=== PATIENT | male | born 1985 | race Caucasian/White ===

== ENCOUNTER 2022-12-26 10:32 | Day surgery (SDC) | payer BC ==
[2022-12-26] MEDS ORDERED: LIDOCAINE HCL 1% 50 MG/5 ML VL PF IJ ONE (10:33)
[2022-12-26] MEDS ORDERED: Sodium Chloride 0.9(Preservative Free) 10 ML IJ ONE (10:33)
[2022-12-26] MEDS ORDERED: Depo-Medrol 40 MG/ML IM ONE (10:33)
[2022-12-26] MEDS ORDERED: DIPRIVAN 200 MG/20 ML IV ONE ×2 (12:42→12:49)
[2022-12-26] MEDS ORDERED: Lactated Ringers 1,000 ML IV ONE (13:19)
--- NOTE | 2022-12-26 13:55 | XRAY ---
Indication: Lumbar RENE. Intraoperative fluoroscopy provided for 41 seconds. 33 digital spot image submitted for interpretation demonstrates posterior needle tip projecting posterior to L3-L4 interspace. Small amount of contrast injected for needle tip placement. Correlate with intraoperative findings/report.
--- NOTE | 2022-12-26 14:42 | XRAY ---
41 seconds of fluoroscopy was used in surgery for a lumbar RENE.
== END 2022-12-26 13:20 | disposition home or self-care (01) ==
LOC: SDC-PAIN 10:32
PROVIDERS: ATTEND Psychiatry & Neurology Pain Medicine
DX: M54.16 Radiculopathy, lumbar region (principal); Z79.899 Other long term (current) drug therapy
CPT/HCPCS: 62323; 72100; 77003; J1030; J2001; J2704; Q9966

== ENCOUNTER 2023-01-23 08:10 | Day surgery (SDC) | payer BC ==
[2023-01-23] MEDS ORDERED: Depo-Medrol 40 MG/ML IM ONE (08:11)
[2023-01-23] MEDS ORDERED: Sodium Chloride 0.9(Preservative Free) 10 ML IJ ONE (08:11)
[2023-01-23] MEDS ORDERED: DIPRIVAN 200 MG/20 ML IV ONE ×2 (09:06→09:14)
--- NOTE | 2023-01-23 12:28 | XRAY ---
Indication: Right L2-L5 transforaminal RENE. Intraoperative fluoroscopy provided for 56 seconds. 6 digital spot images submitted for interpretation demonstrates posterior needle tip projecting over the right L2-L4 nerve roots. Small amount of contrast injected for needle tip placement. Correlate with intraoperative findings/report.
--- NOTE | 2023-01-23 12:41 | XRAY ---
56 seconds of fluoroscopy was used in surgery for a right L2-L5 transforaminal RENE.
[2023-01-23] MEDS ORDERED: Lactated Ringers 1,000 ML IV ONE (13:51)
== END 2023-01-23 09:45 | disposition home or self-care (01) ==
LOC: SDC-PAIN 08:10
PROVIDERS: ATTEND Psychiatry & Neurology Pain Medicine
DX: M54.16 Radiculopathy, lumbar region (principal); Z79.899 Other long term (current) drug therapy
CPT/HCPCS: 64483; 64484; 72100; 77003; J1030; J2704; Q9966

== ENCOUNTER 2023-03-06 13:43 | Day surgery (SDC) | payer BC ==
[2023-03-06] MEDS ORDERED: Depo-Medrol 40 MG/ML IM ONE (13:44)
[2023-03-06] MEDS ORDERED: LIDOCAINE HCL 2% 100 MG/5 ML IJ ONE (13:44)
[2023-03-06] MEDS ORDERED: DIPRIVAN 200 MG/20 ML IV ONE ×2 (14:30→14:38)
[2023-03-06] MEDS ORDERED: Lactated Ringers 1,000 ML IV ONE (15:08)
--- NOTE | 2023-03-06 19:08 | XRAY ---
Indication: Bilateral L4-S1 MBB. Intraoperative fluoroscopy provided for 11 seconds. Single digital spot image submitted for interpretation demonstrates posterior needle tips projecting over the expected left and right L4-S1 nerve roots. Correlate with intraoperative findings/report.
--- NOTE | 2023-03-06 19:27 | XRAY ---
11 seconds of fluoroscopy was used in surgery for a bilateral L4-S1 MBB.
== END 2023-03-06 14:57 | disposition home or self-care (01) ==
LOC: SDC-PAIN 13:43
PROVIDERS: ATTEND Psychiatry & Neurology Pain Medicine
DX: M47.816 Spondylosis without myelopathy or radiculopathy, lumbar region (principal); Z79.899 Other long term (current) drug therapy
CPT/HCPCS: 64493; 64494; 72020; 77002; J1030; J2704

== ENCOUNTER 2023-05-23 11:34 | Day surgery (SDC) | payer BC ==
[2023-05-23] MEDS ORDERED: Depo-Medrol 40 MG/ML IM ONE (11:35)
[2023-05-23] MEDS ORDERED: BUPIVACAINE 0.5% VIAL IJ ONE (11:35)
[2023-05-23] MEDS ORDERED: Versed 2 MG/2 ML Injection ONE (12:32)
[2023-05-23] MEDS ORDERED: DIPRIVAN 200 MG/20 ML IV ONE (12:32)
[2023-05-23] MEDS ORDERED: Lactated Ringers 1,000 ML IV ONE (12:58)
--- NOTE | 2023-05-23 14:02 | XRAY ---
Indication: Bilateral L4-S1 MBB. Intraoperative fluoroscopy provided for 12 seconds. Single digital spot image submitted for interpretation demonstrates posterior needle tips projecting over the expected left and right L4-S1 nerve roots. Correlate with intraoperative findings/report.
--- NOTE | 2023-05-23 14:08 | XRAY ---
12 seconds of fluoroscopy was used in surgery for a bilateral L4-S1 MBB.
== END 2023-05-23 12:54 | disposition home or self-care (01) ==
LOC: SDC-PAIN 11:34
PROVIDERS: ATTEND Psychiatry & Neurology Pain Medicine
DX: M47.816 Spondylosis without myelopathy or radiculopathy, lumbar region (principal); Z79.899 Other long term (current) drug therapy
CPT/HCPCS: 64493; 64494; 72020; 77002; J1030; J2250; J2704

== ENCOUNTER 2023-07-03 13:12 | Day surgery (SDC) | payer BC ==
[2023-07-03] MEDS ORDERED: LIDOCAINE HCL 1% 50 MG/5 ML VL PF IJ ONE (13:13)
[2023-07-03] MEDS ORDERED: BUPIVACAINE 0.5% VIAL IJ ONE (13:13)
[2023-07-03] MEDS ORDERED: Depo-Medrol 40 MG/ML IM ONE (13:13)
[2023-07-03] MEDS ORDERED: DIPRIVAN 200 MG/20 ML IV ONE ×3 (15:26→15:39)
[2023-07-03] MEDS ORDERED: Versed 2 MG/2 ML Injection ONE (15:27)
[2023-07-03] MEDS ORDERED: Lactated Ringers 1,000 ML IV ONE (15:59)
--- NOTE | 2023-07-03 16:47 | XRAY ---
Indication: Left L4-S1 RFA. Intraoperative fluoroscopy provided for 28 seconds. 5 digital spot image submitted for interpretation demonstrates posterior needle tips projecting over the expected left L4-S1 nerve roots. Correlate with intraoperative findings/report.
--- NOTE | 2023-07-08 14:58 | XRAY ---
28 seconds of fluoroscopy was used in surgery for a left L4-S1 RFA.
== END 2023-07-03 16:01 | disposition home or self-care (01) ==
LOC: SDC-PAIN 13:12
PROVIDERS: ATTEND Psychiatry & Neurology Pain Medicine
DX: M47.816 Spondylosis without myelopathy or radiculopathy, lumbar region (principal); Z79.899 Other long term (current) drug therapy
CPT/HCPCS: 64635; 64636; 72100; 77002; J1030; J2001; J2250; J2704

== ENCOUNTER 2024-02-12 10:37 | Day surgery (SDC) | payer BC ==
[2024-02-12] MEDS ORDERED: Depo-Medrol 40 MG/ML IM ONE (10:38)
[2024-02-12] MEDS ORDERED: Xylocaine-Mpf 2% 5 Ml Vial IJ ONE (10:38)
[2024-02-12] MEDS ORDERED: DIPRIVAN 200 MG/20 ML IV ONE (12:04)
--- NOTE | 2024-02-12 13:03 | XRAY ---
Indication: Bilateral L3-L5 MBB. Intraoperative fluoroscopy provided for 9 seconds. Single digital spot image submitted for interpretation demonstrates posterior needle tips projecting over the expected left and right L3-L5 nerve roots. Correlate with intraoperative findings/report.
--- NOTE | 2024-02-12 13:06 | XRAY ---
9 seconds of fluoroscopy was used in surgery for a bilateral L3-L5 MBB.
[2024-02-12] MEDS ORDERED: Lactated Ringers 1,000 ML IV ONE (13:13)
== END 2024-02-12 12:30 | disposition home or self-care (01) ==
LOC: SDC-PAIN 10:37
PROVIDERS: ATTEND Psychiatry & Neurology Pain Medicine
DX: M47.816 Spondylosis without myelopathy or radiculopathy, lumbar region (principal)
CPT/HCPCS: 64493; 64494; 72020; 77002; J1010; J2704

== ENCOUNTER 2024-04-08 12:56 | Day surgery (SDC) | payer BC ==
[2024-04-08] MEDS ORDERED: DIPRIVAN 200 MG/20 ML IV ONE ×2 (15:30→15:47)
[2024-04-08] MEDS ORDERED: Lactated Ringers 1,000 ML IV ONE (15:32)
--- NOTE | 2024-04-08 16:57 | XRAY ---
Indication: Bilateral L3-L5 MBB. Intraoperative fluoroscopy provided for 21 seconds. Single digital spot image submitted for interpretation demonstrates posterior needle tips projecting over the expected left and right L3-L5 nerve roots. Correlate with intraoperative findings/report.
--- NOTE | 2024-04-09 09:10 | XRAY ---
21 seconds of fluoroscopy was used in surgery for a bilateral L3-L5 MBB.
== END 2024-04-08 16:10 | disposition home or self-care (01) ==
LOC: SDC-PAIN 12:56
PROVIDERS: ATTEND Psychiatry & Neurology Pain Medicine
DX: M47.816 Spondylosis without myelopathy or radiculopathy, lumbar region (principal)
CPT/HCPCS: 64493; 64494; 72020; 77002; J2704

== ENCOUNTER 2024-06-10 10:29 | Day surgery (SDC) | payer BC ==
[2024-06-10] MEDS ORDERED: Depo-Medrol 40 MG/ML IM ONE (10:30)
[2024-06-10] MEDS ORDERED: LIDOCAINE HCL 1% 50 MG/5 ML VL PF IJ ONE (10:30)
[2024-06-10] MEDS ORDERED: BUPIVACAINE 0.5% VIAL IJ ONE (10:30)
[2024-06-10] MEDS ORDERED: DIPRIVAN 200 MG/20 ML IV ONE ×2 (12:11→12:12)
[2024-06-10] MEDS ORDERED: Lactated Ringers 1,000 ML IV ONE (14:19)
--- NOTE | 2024-06-10 14:34 | XRAY ---
Indication: Right L3-L5 RFA. Intraoperative fluoroscopy provided for 18 seconds. 4 digital spot image submitted for interpretation demonstrates posterior needle tips projecting over the expected right L3-L5 nerve roots. Correlate with intraoperative findings/report.
--- NOTE | 2024-06-10 14:38 | XRAY ---
18 seconds of fluoroscopy was used in surgery for a right L3-L5 RFA.
== END 2024-06-10 12:45 ==
LOC: SDC-PAIN 10:29
PROVIDERS: ATTEND Psychiatry & Neurology Pain Medicine
DX: M47.816 Spondylosis without myelopathy or radiculopathy, lumbar region (principal); M47.817 Spondylosis without myelopathy or radiculopathy, lumbosacral region
CPT/HCPCS: 64635; 64636; 72100; 77002; J2001; J2704

== ENCOUNTER 2024-06-11 10:34 | Day surgery (SDC) | payer BC ==
[2024-06-11] MEDS ORDERED: BUPIVACAINE 0.5% VIAL IJ ONE (10:35)
[2024-06-11] MEDS ORDERED: LIDOCAINE HCL 1% 50 MG/5 ML VL PF IJ ONE (10:35)
[2024-06-11] MEDS ORDERED: Depo-Medrol 40 MG/ML IM ONE (10:35)
[2024-06-11] MEDS ORDERED: DIPRIVAN 200 MG/20 ML IV ONE (13:09)
[2024-06-11] MEDS ORDERED: Lactated Ringers 1,000 ML IV ONE (14:04)
--- NOTE | 2024-06-11 15:03 | XRAY ---
Indication: Left L3-L5 RFA. Intraoperative fluoroscopy provided for 22 seconds. 4 digital spot image submitted for interpretation demonstrates posterior needle tips projecting over the expected left L3-L5 nerve roots. Correlate with intraoperative findings/report.
--- NOTE | 2024-06-11 15:24 | XRAY ---
22 seconds of fluoroscopy was used in surgery for a left L3-L5 RFA.
== END 2024-06-11 13:44 | disposition home or self-care (01) ==
LOC: SDC-PAIN 10:34
PROVIDERS: ATTEND Psychiatry & Neurology Pain Medicine
DX: M47.816 Spondylosis without myelopathy or radiculopathy, lumbar region (principal); M47.817 Spondylosis without myelopathy or radiculopathy, lumbosacral region
CPT/HCPCS: 64635; 64636; 72100; 77002; J2001; J2704

== ENCOUNTER 2024-10-21 15:25 | Day surgery (SDC) | payer BC ==
[2024-10-21] MEDS ORDERED: Sodium Chloride 0.9(Preservative Free) 10 ML IJ ONE (15:26)
[2024-10-21] MEDS ORDERED: dexAMETHasone sodium phosphate IJ ONE (15:26)
[2024-10-21] MEDS ORDERED: LIDOCAINE HCL 1% AMPUL 5 ML IJ ONE (15:26)
[2024-10-21] MEDS ORDERED: Sodium Chloride 0.9% 250 ML 250 ML IV ONE (15:32)
--- NOTE | 2024-10-21 18:53 | XRAY ---
Indication: Cervical RENE. Intraoperative fluoroscopy provided for 37 seconds. 4 digital spot image submitted for interpretation demonstrates posterior needle tip projecting posterior to cervical thoracic junction. Small amount of contrast injected for needle tip. Correlate with intraoperative findings/report.
--- NOTE | 2024-10-21 19:10 | XRAY ---
37 seconds of fluoroscopy used in surgery for a cervical RENE.
== END 2024-10-21 17:35 ==
LOC: SDC-PAIN 15:25
PROVIDERS: ATTEND Psychiatry & Neurology Pain Medicine
DX: M54.12 Radiculopathy, cervical region (principal)
CPT/HCPCS: 62321; 72040; 77003; J1100; Q9966